=== PATIENT | female | born 1955 | race Caucasian/White ===

== ENCOUNTER 2025-04-30 13:44 | Outpatient (REF) | payer MEDICARE, OTHER, SELFPAY ==
--- NOTE | ~2025-04-30 | MR_ITS ---
EXAM: MRI LOWER EXTREMITY JOINT, KNEE, left TECHNIQUE: Multiplanar multisequence MR imaging performed through the left knee without contrast. INDICATION: JOINT PAIN PRIOR: None FINDINGS: Menisci: Lateral Meniscus: Anterior horn last lateral meniscus is small, frayed, and irregular. Lateral meniscal body is mildly extruded from the joint line. Medial Meniscus: Inner free margin of the medial meniscal body is minimally frayed. On coronal imaging, there is nonspecific linear signal within the body of the meniscus. ACL/PCL: ACL appears intact. PCL appears intact. Extensor mechanism: Small complex joint effusion is present. There is patchy fluid signal in Hoffa's fat pad. MCL/LCL: MCL is intact. LCL complex is intact. Articular cartilage: Patellofemoral Compartment: Involving the third patella, ureters, there is full-thickness articular cartilage defect extending into the lateral facet of the middle third and lower third patella with adjacent reactive marrow signal change. At the junction of trochlear groove and lateral facet and trochlea, there is undulating shallow partial thickness articular cartilage defects in the upper and central portion of the trochlea. Lateral Compartment: Full thickness articular cartilage defect in the posterior weightbearing region lateral femoral condyle measures 6 x 15 mm (transverse by AP). There is grade 3 chondral malacia in the adjacent posterior lateral tibial plateau 11 mm anterior-posterior Medial Compartment: There is likely a hairline fissure across the full-thickness of the articular cartilage in the medial tibial plateau, near the base of the intercondylar spine. There is adjacent faint reactive marrow signal change. Bones/Marrow: Patchy mild reactive marrow signal changes present in the lateral tibial plateau and to a lesser degree lateral femoral condyle. There are small marginal osteophytes. Soft tissues: There is a multiloculated moderate-sized leaking Unger's cyst. MR/MR knee LT wo con IMPRESSION: Moderate osteoarthritis with cartilage loss most advanced in the patella and lateral compartment. There is a mild secondary synovitis. There is also multiloculated leaking Unger's cyst. Anterior horn lateral meniscus is small, frayed, and irregular. There is a questionable tear of the medial meniscal body. The appearance does not strictly meet the definition of a tear by MRI criteria. Electronically signed by: Charles Perry MD 04/30/2025 02:42 PM EDT
--- OUTSIDE RECORDS SUMMARY | 2025-04-30 14:14 | XMS_ITS | Patient Health Record ---
[facility] Address [address] [place] [address] Care Team Providers Care Second Worker Name Role Phone Nic Florentino MD Primary Care Provider UnavailKavya Junior Unavailable [phone] Allergies Allergen (clinical drug ingredient) Drug/Non Drug Allergy documented on EMR Reaction Allergy Type Onset Date Status morphine Morphine Unknown Drug Allergy Active Adhesive Tape Unknown Drug Allergy Act carlos manuel Reason For Referral No Information Medications Medication SIG (Take, Route, Frequency, Duration) Notes Start Date End Date Status Calcium Orally Active Fish Oil Orally; Duration: 30 day(s) Active vitamin Active Chondroitin Sulfate 400 MG as directed Orally Active Glucosamine Orally; Duration: 30 day(s) Active Sertraline HCl Orally; Duration: 30 day(s) Active Loratadine 10 MG 1 tablet Orally Once a day; Duration: 30 day(s) Active Problems Problem Type SNOMED Code ICD Code Onset Dates Problem Status W/U Status Risk Notes Problem Contusion of toe (90026591) Contusion of toe (924.3) Active confirmed Problem Edema (70777276) Edema (782.3) Active confirmed Problem Pain in Limb (729.5) Active confirmed Plan Of Treatment Pending Test Test Name Order Date X ray : Foot, right 3V 05/10/2013 [id number] Plate 01/11/2014 [id number]- Debride <25 sq cm 01/25/2014 Insurance Providers Payer Name Payer Address Payer Phone Subscriber Number Group Number Insured Name Patient Relationship to Insured Coverage Start Date Coverage End Date [facility] [address] [place] [address] [id number] Perry Hodges Spouse - patient is the spouse of the insured Medical (General) History Medical History History ICD Code reflux raynauds syndrome mumps measles chicken pox asthma Arthritis depression Surgical History Surgery Date(Month/Year) foot surgery shoulder surgery
== END 2025-04-30 13:45 | disposition home or self-care (01) ==
LOC: HO.MRI 13:44
PROVIDERS: PCP Internal Medicine; Visit Provider Internal Medicine
DX: M25.562 Pain in left knee (principal)
CPT/HCPCS: 73721

== ENCOUNTER → 2025-04-30 14:00 | Outpatient (BNV) | payer MEDICARE, OTHER, SELFPAY | PROVIDERS: PCP Internal Medicine; Visit Provider Radiology Diagnostic Radiology | DX: M17.12 Unilateral primary osteoarthritis, left knee (principal) | CPT/HCPCS: 73721 ==